=== PATIENT | female | born 1955 ===

== ENCOUNTER 2022-08-26 04:43 | Day surgery (SDC) | payer OTHER ==
[~2022-08-26] VITALS: Ht 157.5 cm; Wt 64.0 kg
[~2022-08-26 04:43] MED LIST: B12 ACTIVE1000 MCG PO
== END 2022-08-26 10:25 | disposition home or self-care (01) ==
LOC: CIR.AMB 04:43
PROVIDERS: ATTEND Specialist
DX: D17.23 Benign lipomatous neoplasm of skin and subcutaneous tissue of right leg (principal); Z20.822 Contact with and (suspected) exposure to COVID-19